=== PATIENT | male | born 1980 | race Caucasian/White ===

== ENCOUNTER 2024-03-05 13:19 | Emergency (ER) | payer OTHER, BC ==
[~2024-03-05] VITALS: Ht 172.7 cm; Wt 79.4 kg
[2024-03-05 13:23] VITALS: BP 131/87; PULSE 61; RESP 16; TEMP 98; O2SAT 99
[2024-03-05] MEDS ORDERED: IBUP-1986 PO (15:02)
== END 2024-03-05 15:22 | disposition home or self-care (01) ==
LOC: ER 13:21
DX: S13.4XXA Sprain of ligaments of cervical spine, initial encounter (principal); M54.2 Cervicalgia; R07.89 Other chest pain; Z88.0 Allergy status to penicillin; Z79.1 Long term (current) use of non-steroidal anti-inflammatories (NSAID); V49.9XXA Car occupant (driver) (passenger) injured in unspecified traffic accident, initial encounter; Y93.89 Activity, other specified; Y92.89 Other specified places as the place of occurrence of the external cause; Y99.8 Other external cause status
CPT/HCPCS: 71046; 72040; 99284